=== PATIENT | male | born 1995 | race Caucasian/White ===

== ENCOUNTER 2017-01-13 18:20 | Emergency (ER) | payer SELFPAY ==
--- NOTE | 2017-01-13 18:55 | NUR ---
PATIENT LEFT WITHOUT BEING SEEN BY DR. THOMAS. NO FURTHER CARE PROVIDED FOR PATIENT.
== END 2017-01-13 18:55 | disposition left against medical advice (07) ==
LOC: MED 18:20
DX: R11.10 Vomiting, unspecified (principal); Z53.21 Procedure and treatment not carried out due to patient leaving prior to being seen by health care provider